=== PATIENT | female | born 1990 | race American Indian/Alaskan Native ===

== ENCOUNTER 2019-09-13 17:18 | Emergency (ER) | payer OTHER ==
--- NOTE | 2019-09-13 17:46 | Emergency Department Report ---
Blank Doc - Documentation Documentation: 29-year-old female that presents with generzlied weakness, body aches, subject landon fever, chills, and cough. Has taken Tylenol. Has been exposed to covid. Exam: tachycardia in triage. This initial assessment/diagnostic orders/clinical plan/treatment(s) is/are subject to change based on patient's health status, clinical progression and re- assessment by fellow clinical providers in the ED. Further treatment and workup at subsequent clinical providers discretion. Patient/guardians urged not to elope from the ED as their condition may be serious if not clinically assessed and managed. Initial orders include: 1- Patient sent to [facility] for further evaluation and treatment 2- CXR
[2019-09-13] MEDS ORDERED: SODIUM CHLORIDE 0.9% 1000 ML 1,000 ML IV ONE (18:11)
[2019-09-13] MEDS ORDERED: ONDANSETRON 4 MG/2 ML INJ IV ONE (18:11)
--- NOTE | 2019-09-13 18:21 | Emergency Department Report ---
ED General Adult HPI - General Chief complaint: Weakness Stated complaint: CHILLS Time Seen by Provider: 09/13/19 17:44 Source: patient Mode of arrival: Ambulatory Limitations: No Limitations - History of Present Illness Initial comments: Patient is 29 years old female with no significant past medical history. Patient presented to the ER complaining of fever, chills generalized body ache for the last 3 days. Patient stated that she vomited once yesterday. Patient stated that 1 of her coworker tested positive for COVID-19. -: days(s) (3) - Related Data Home Medications Medication Instructions Recorded Confirmed Last Taken No Known Home Medications [No 09/13/19 09/13/19 Unknown Reported Home Medications] Allergies Allergy/AdvReac Type Severity Reaction Status Date / Time No Known Allergies Allergy Unverified 09/13/19 17:20 ED Review of Systems ROS: Stated complaint: CHILLS Other details as noted in HPI Comment: All other systems reviewed and negative Constitutional: chills, fever Respiratory: cough, shortness of breath Cardiovascular: denies: chest pain, palpitations Gastrointestinal: nausea, vomiting. denies: abdominal pain, diarrhea, constipation, hematemesis, melena, hematochezia Musculoskeletal: arthralgia, myalgia. denies: back pain Skin: denies: rash, lesions Neurological: denies: headache, weakness, numbness, paresthesias, confusion, abnormal gait Psychiatric: denies: anxiety, depression, auditory hallucinations, visual hallucinations, homicidal thoughts, suicidal thoughts ED Past Medical Hx - Past Medical History Previous Medical History?: No - Surgical History Past Surgical History?: No - Social History Smoking Status: Never Smoker Substance Use Type: None - Medications Home Medications: Home Medications Medication Instructions Recorded Confirmed Last Taken Type No Known Home Medications [No 09/13/19 09/13/19 Unknown History Reported Home Medications] ED Physical Exam - General Limitations: No Limitations General appearance: alert, in no apparent distress - Head Head exam: Present: atraumatic, normocephalic, normal inspection - Eye Eye exam: Present: normal appearance - ENT ENT exam: Present: normal exam, normal orophraynx, mucous membranes moist - Neck Neck exam: Present: normal inspection, full ROM. Absent: tenderness, meningismus, lymphadenopathy, thyromegaly - Respiratory Respiratory exam: Present: normal lung sounds bilaterally - Cardiovascular Cardiovascular Exam: Present: regular rate, normal rhythm, normal heart sounds - GI/Abdominal GI/Abdominal exam: Present: soft, normal bowel sounds. Absent: distended, tenderness, guarding, rebound, rigid, organomegaly, mass, bruit, pulsatile mass, hernia - Back Exam Back exam: Present: normal inspection, full ROM. Absent: CVA tenderness (R), CVA tenderness (L) - Neurological Exam Neurological exam: Present: alert, oriented X3, CN II-XII intact, normal gait, reflexes normal - Psychiatric Psychiatric exam: Present: normal mood - Skin Skin exam: Present: warm, intact, normal color ED Course Vital Signs 09/13/19 09/13/19 09/13/19 17:24 18:10 18:12 Temperature 98.4 F 98.5 F Pulse Rate 105 H 78 Respiratory 20 20 20 Rate Blood Pressure 112/71 Blood Pressure 116/78 [Right] O2 Sat by Pulse 99 99 100 Oximetry ED Medical Decision Making - Lab Data Result diagrams: 09/13/19 18:10 09/13/19 18:45 - Radiology Data Radiology results: report reviewed - Medical Decision Making Patient is 29 years old female with no significant past medical history. Patient presented to the ER complaining of fever, chills generalized body ache for the last 3 days. Patient stated that she vomited once yesterday. Patient stated that 1 of her coworker tested positive for COVID-19. Patient received normal saline and Zofran. Chest x-ray is unremarkable. Labs reviewed and is unremarkable. Patient advised to follow-up with her primary care physician for testing for COVID-19. Patient also advised to return to the ER if she develop any new symptoms or if her symptoms get worse. Critical care attestation.: If time is entered above; I have spent that time in minutes in the direct care of this critically ill patient, excluding procedure time. ED Disposition Clinical Impression: Fever, Nausea and vomiting Disposition: DC-01 TO HOME OR SELFCARE Is pt being admited?: No Condition: Stable Instructions: COVID-19, Acute Nausea and Vomiting (ED) Referrals: PRIMARY CARE, [Primary Care Provider] - 3-5 Days
--- NOTE | 2019-09-13 18:35 | XRay Report ---
CHEST 1 VIEW INDICATION: cough. COMPARISON: None. FINDINGS: Support devices: None. Heart: Within normal limits. Lungs/Pleura: No acute air space or interstitial disease. Additional findings: None. IMPRESSION: No acute abnormality. Signer Name: Minh Mora MD Signed: 09/13/2019 6:31 PM Workstation Name: [id number]
[2019-09-13 18:38] LABS: Basophils % (Auto) 0.4 % (0.0-1.8); Eosinophils # (Auto) 0.2 K/mm3 (0.0-0.4); Eosinophils % (Auto) 2.9 % (0.0-4.3); Hematocrit 35.6 % (30.3-42.9); Hemoglobin 11.6 gm/dl (10.1-14.3); Lymphocytes # (Auto) 1.8 K/mm3 (1.2-5.4); Lymphocytes % (Auto) 34.7 % (13.4-35.0); Mean Corpuscular HGB Conc 33 % (30-34); Mean Corpuscular Volume 76 fl (79-97); Monocytes # (Auto) 0.5 K/mm3 (0.0-0.8); Monocytes % (Auto) 8.6 % (0.0-7.3); Platelet Count 273 K/mm3 (140-440); Red Blood Count 4.68 M/mm3 (3.65-5.03); Red Cell Distribution Width 18.4 % (13.2-15.2)
[2019-09-13 19:01] LABS: C-Reactive Protein 0.1 mg/dL (0.00-1.30)
[2019-09-13 19:19] LABS: Alanine Aminotransferase 12 units/L (7-56); Albumin 4.3 g/dL (3.9-5); BUN/Creatinine Ratio 13; Blood Urea Nitrogen 8 mg/dL (7-17); Calcium 9.4 mg/dL (8.4-10.2); Hemolysis Index 9
[2019-09-13 22:15] VITALS: BP 116/69
== END 2019-09-13 22:16 | disposition home or self-care (01) ==
LOC: ED 17:18
DX: R50.9 Fever, unspecified (principal); R11.2 Nausea with vomiting, unspecified
CPT/HCPCS: 36415; 71045; 80053; 82728; 82947; 83615; 83690; 84145; 84703; 85025; 85379; 86140; 96361; 96365; 99284; J2405; J7030

== ENCOUNTER 2020-06-09 22:54 | Emergency (ER) | payer BC, OTHER ==
[2020-06-09 23:06] VITALS: BP 115/78
--- NOTE | 2020-06-09 23:25 | Emergency Department Report ---
Minor Respiratory - HPI Chief Complaint: Upper Respiratory Infection Stated Complaint: COUGH;CONGESTION Time Seen by Provider: 06/09/20 23:06 Duration: 3 Days Pain Location: Throat, Nose, Chest Minor Respiratory: Yes Rhinorrhea, Yes Able to Tolerate Fluids, Yes Cough, Yes Sick Contacts (Daughter who is just getting over upper respiratory illness), Yes Fever, No Sore Throat, No Ear Pain, No Hemoptysis, No Chest Pain, No Shortness of Breath Other History: This is a 29-year-old female with no prior medical history presents with coughing, congestion for the past 2 to 3 days. She states she was around her 6-year-old daughter that was recently sick. Patient states she has had intermittent coughing for the past 2 to 3 days and stuffy nose. She denies fever/chills/nausea vomiting abdominal pain shortness of breath. ED Review of Systems ROS: Stated complaint: COUGH;CONGESTION Other details as noted in HPI Comment: All other systems reviewed and negative ED Past Medical Hx - Past Medical History Previous Medical History?: No - Surgical History Past Surgical History?: No - Social History Smoking Status: Current Every Day Smoker - Medications Home Medications: Home Medications Medication Instructions Recorded Confirmed Last Taken Type Ondansetron [Zofran Odt] 4 mg PO Q8HR PRN #14 tab.rapdis 09/13/19 Unknown Rx Azithromycin [Zithromax] 250 mg PO DAILY #6 tablet 06/09/20 Unknown Rx Benzonatate [Tessalon Perles] 100 mg PO Q8HR #30 capsule 06/09/20 Unknown Rx Cetirizine HCl [Zyrtec 10mg tab] 10 mg PO DAILY #20 tablet 06/09/20 Unknown Rx guaiFENesin [Robitussin] 5 ml PO TID PRN #100 ml 06/09/20 Unknown Rx Minor Respiratory Exam - Exam General: Vital signs noted. No distress. Alert and acting appropriately. HEENT: Yes Moist Mucous Membranes, Yes Rhinorrhea (Clear), No Pharyngeal Erythe ma, No Pharyngeal Exudates, No Conjuctival Injection, No Frontal Tenderness, No Maxillary Tenderness Ear: Neither TM Bulge, Neither TM Erythema, Neither EAC Pain, Neither EAC Discharge Neck: Yes Supple, No Adenopathy Lungs: Yes Good Air Exchange, No Wheezes, No Ronchi, No Stridor, No Cough, No Labored Respirations, No Retractions, No Use of Accessory Muscles, No Other Abnormal Lung Sounds Heart: Yes Regular, No Murmur Abdomen: Yes Normal Bowel Sounds, No Tenderness, No Peritoneal Signs Skin: No Rash, No Edema Neurologic: Alert and oriented, no deficits. Musculoskeletal: Unremarkable. ED Course Vital Signs 06/09/20 23:03 Temperature 99.3 F Pulse Rate 99 H Respiratory 18 Rate Blood Pressure 115/78 O2 Sat by Pulse 100 Oximetry ED Medical Decision Making - Lab Data Result diagrams: 06/09/20 23:13 06/09/20 23:13 Laboratory Last Values WBC 6.4 K/mm3 (4.5-11.0) 06/09/20 23:13 RBC 4.43 M/mm3 (3.65-5.03) 06/09/20 23:13 Hgb 11.7 gm/dl (10.1-14.3) 06/09/20 23:13 Hct 35.8 % (30.3-42.9) 06/09/20 23:13 MCV 81 fl (79-97) 06/09/20 23:13 MCH 26 pg (28-32) L 06/09/20 23:13 MCHC 33 % (30-34) 06/09/20 23:13 RDW 16.2 % (13.2-15.2) H 06/09/20 23:13 Plt Count 217 K/mm3 (140-440) 06/09/20 23:13 Sodium 135 mmol/L (137-145) L 06/09/20 23:13 Potassium 4.1 mmol/L (3.6-5.0) 06/09/20 23:13 Chloride 101.9 mmol/L (98-107) 06/09/20 23:13 Carbon Dioxide 26 mmol/L (22-30) 06/09/20 23:13 Anion Gap 11 mmol/L 06/09/20 23:13 BUN 7 mg/dL (7-17) 06/09/20 23:13 Creatinine 0.7 mg/dL (0.6-1.2) 06/09/20 23:13 Estimated GFR > 60 ml/min 06/09/20 23:13 BUN/Creatinine Ratio 10 % 06/09/20 23:13 Glucose 93 mg/dL (65-100) 06/09/20 23:13 Calcium 9.0 mg/dL (8.4-10.2) 06/09/20 23:13 - Radiology Data Radiology results: report reviewed, image reviewed Fluoro Time In Minutes: CHEST 2 VIEWS INDICATION: cp. COMPARISON: 09/13/2019 FINDINGS: Support devices: None. Heart: Within normal limits. Lungs/Pleura: No acute air space or interstitial disease. No significant pleural effusion. IMPRESSION: No acute findings. Signer Name: Minh Mora MD Signed: 06/09/2020 11:39 PM Workstation Name: [id number] Transcribed By: ES Dictated By: Minh Mora MD Electronically Authenticated By: Minh Mora MD Signed Date/Time: 06/09/20 5335 - Medical Decision Making 29-year-old female presents with upper respiratory symptoms no fever during the ED stay. Discussed with patient symptomatic relief with [id number] medications. Chest x-ray shows no acute findings. See report above Discussed with patient COVID-19 testing is appropriate and mandatory and should be done as soon as possible. Discussed with patient for 14-day quarantine if test is positive. Discussed worsening of symptoms patient should return to ED immediately. Patient oxygen saturation stayed at 100% on room air during exertion and after exertion. Discussed continue Tylenol as needed for fever and pain. Discussed increase fluids and diet intake. Discussed rest much needed. Discussed daily vitamin C for immune booster. Discussed follow-up with primary care physician in 3-5 days. Patient verbally states she understands and will comply the following instructions and follow-up Vital signs stable. Patient is in no acute distress Critical care attestation.: If time is entered above; I have spent that time in minutes in the direct care of this critically ill patient, excluding procedure time. ED Disposition Clinical Impression: Upper respiratory infection, Bronchitis Disposition: DC-01 TO HOME OR SELFCARE Is pt being admited?: No Does the pt Need Aspirin: No Condition: Stable Instructions: Cough, Adult, Asza-my-Lsex, Upper Respiratory Infection, Adult, Chronic Bronchitis (ED) Additional Instructions: Make sure to follow up with the primary care physician as discussed. Take all your medications as you've been prescribed. If you have any worsening symptoms or develop new symptoms please return to ED immediately. Prescriptions: guaiFENesin [Robitussin] 5 ml PO TID PRN #100 ml PRN Reason: Cough Benzonatate [Tessalon Perles] 100 mg PO Q8HR #30 capsule Azithromycin [Zithromax] 250 mg PO DAILY #6 tablet Cetirizine HCl [Zyrtec 10mg tab] 10 mg PO DAILY #20 tablet Referrals: PRIMARY CARE,MD [Primary Care Provider] - 3-5 Days Forms: Accompanied Note, Work/School Release Form(ED) Time of Disposition: 00:14
[2020-06-09 23:41] LABS: Blood Urea Nitrogen 7 mg/dL (7-17); Hemolysis Index 12
[2020-06-09 23:43] LABS: BUN/Creatinine Ratio 10
--- NOTE | 2020-06-09 23:43 | XRay Report ---
CHEST 2 VIEWS INDICATION: cp. COMPARISON: 09/13/2019 FINDINGS: Support devices: None. Heart: Within normal limits. Lungs/Pleura: No acute air space or interstitial disease. No significant pleural effusion. IMPRESSION: No acute findings. Signer Name: Minh Mora MD Signed: 06/09/2020 11:39 PM Workstation Name: [id number]
[2020-06-09 23:48] LABS: Hematocrit 35.8 % (30.3-42.9); Hemoglobin 11.7 gm/dl (10.1-14.3); Mean Corpuscular HGB Conc 33 % (30-34); Mean Corpuscular Volume 81 fl (79-97); Platelet Count 217 K/mm3 (140-440); Red Blood Count 4.43 M/mm3 (3.65-5.03); Red Cell Distribution Width 16.2 % (13.2-15.2)
[2020-06-10 02:29] LABS: Hypochromasia Few; Platelet Estimate Consistent w Auto; Schistocytes Few; Total Cells Counted 100
== END 2020-06-10 01:10 | disposition home or self-care (01) ==
LOC: ED 22:54
DX: J06.9 Acute upper respiratory infection, unspecified (principal); J40 Bronchitis, not specified as acute or chronic; F17.200 Nicotine dependence, unspecified, uncomplicated; Z79.2 Long term (current) use of antibiotics; Z79.899 Other long term (current) drug therapy
CPT/HCPCS: 36415; 71046; 80048; 85007; 85025